=== PATIENT | male | born 1980 | race Caucasian/White ===

== ENCOUNTER 2020-02-07 04:01 | Emergency (ER) | payer OTHER ==
[~2020-02-07] VITALS: Ht 160 cm; Wt 70.3 kg
[2020-02-07] MEDS ORDERED: [UNRECOGNIZED DRUG - OTHER] PO (04:25)
[2020-02-07] MEDS ORDERED: ZPAK PO (05:25)
[2020-02-07] MEDS ORDERED: PREDNISONE 20 M20 MG PO (05:25)
[2020-02-07] MEDS ORDERED: VENTOLIN HFA 1818 GM INH (05:25)
[2020-02-07 05:52] VITALS: BP 135/85
== END 2020-02-07 06:30 | disposition home or self-care (01) ==
LOC: ER 04:01
DX: J45.901 Unspecified asthma with (acute) exacerbation (principal); J18.9 Pneumonia, unspecified organism; J06.9 Acute upper respiratory infection, unspecified; Z20.828 Contact with and (suspected) exposure to other viral communicable diseases